=== PATIENT | male | born 1960 | race Caucasian/White ===

== ENCOUNTER 2016-08-26 21:43 | Emergency (ER) | payer BC ==
--- NOTE | 2016-08-26 22:23 | ERNOTE ---
Upper Extremity HPI - General Extremities Pain Location: forearm: right - swelling and tenderness Time Seen by Provider: 08/26/16 22:00 Source: patient - Immun/Allergies/Home Medications Immunizations: IMMUNIZATION HX Immunizations Up to Date No: last tetanus vaccine unknown History of Influenza Vaccine No Hx Pneumococcal Vaccination No Allergies/Adverse Reactions: Allergies Allergy/AdvReac Type Severity Reaction Status Date / Time No Known Allergies Allergy Verified 07/22/16 11:55 Home Medications: HOME MEDICATIONS Lisinopril/Hydrochlorothiazide [Zestoretic 20-25 mg Tablet] 2 each PO DAILY [Last Taken 07/22/16 06:00] HYDROcodone/ACETAMINOPHEN [[place] 5-325] 1 - 2 tab PO Q6H PRN #30 tab 07/19/16 [ Last Taken 07/21/16 00:00] HYDROcodone/ACETAMINOPHEN [[place] 5-325] 1 - 2 tab PO Q4H PRN #60 tab 07/22/16 [ Last Taken Unknown] Potassium Gluconate [Potassium] 99 mg PO DAILY 07/22/16 [Last Taken 07/19/16 08: 00] - History of Present Illness Narrative: Pt had humerus fracture and ORIF on July 21. Has had problems with edema and has had edema glove and sleeve which have helped in general. an area on the right forearm has remained swollen even with the sleeve. When they removed the sleeve there was a large area on the posterior/ lat forearm approx the size of a golf ball Severity: moderate Method of Injury: Reports: other Other Injuries: Reports: extremities - shoulder Prior Treament: Reports: recently seen - has had forearm x-ray done without abnormalities, treated by physician Review of Systems - Review of Systems Constitutional: Absent: recent illness, fever, chills EYE: Present: no symptoms reported ENT: Present: no symptoms reported Respiratory: Absent: shortness of breath, cough Cardiology: Absent: chest pain Gastrointestinal/Abdominal: Present: no symptoms reported Genitourinary: Present: no symptoms reported Skin: Present: See HPI Neurological: Present: no symptoms reported Endocrine: Present: no symptoms reported Hematologic/Lymphatic: Present: other - edema since shoulder surgery Psych: Present: no symptoms reported - Patient's Past Medical History Patient History - Medical: GERD, Other Patient History - Cardiac/Respiratory: COPD, Hypertension Patient History - Cancer: No Hx of Cancer Patient History - Surgical Procedures: Appendectomy, Cholecystectomy, Colonoscopy, EGD, Other - Family History Father Family History - Medical: , No pertinent hx Family History - Cardiac/Respiratory: Coronary Heart Disease, Myocardial Infarction, Pulmonary Embolism, Other Mother Family History - Medical: , No pertinent hx Family History - Cardiac/Respiratory: Hypertension - Social History Living Situations: spouse Smoking Status: Never smoker Have you smoked in the past 12 months: No Do you dip or chew tobacco: No Alcohol Use: none Drug Use: none Physical Exam - Physical Exam General Appearance: Present: wd/wn, alert, no apparent distress Neck: Present: normal inspection, supple Respiratory: Present: no respiratory distress, no accessory muscle use Peripheral Pulses: N=norm/S=strong/W=weak/B=bound/A=absent: Radial (R): Normal Back Exam: Present: normal inspection, normal range of motion Extremity Exam: Present: extremity edema - RUE. specific swelling on the post/ lat right forearm approx 4-5 cm from the elbow. Mild tenderness at this swelling but most tenderness medial on the proximal forearm Neurological Exam: Present: alert, oriented Skin Exam: Present: normal color, warm/dry ED Progress - Results and Orders Patient's Lab Results:: I have reviewed the patient's lab results. Results and Orders: Laboratory Tests 08/26/16 08/26/16 22:22 22:22 WBC 5.6 Hgb 15.0 Hct 40.7 L Plt Count 218 D-Dimer 0.39 - Vital Signs Patient's Vital Signs:: I have reviewed the patient's vital signs. Vital Signs: Vital Signs 08/26/16 21:47 Temperature 36.6 C Pulse Rate 85 Respiratory 14 Rate Blood Pressure 118/74 O2 Sat by Pulse 96 Oximetry - Progress/Reassessment Chief Complaint: Upper Extremity Injury/Problem Progress:: Unchanged - encouraged keeping arm above his heart as much as he can with his shoulder restrictions. Encouraged pumping hand frequently Departure Clinical Impression: Edema of upper extremity - Departure Disposition: Home Follow Up Needed Condition: Good Instructions: Edema, [id number] Additional Instructions: See Dr. Faust tomorrow as scheduled Referrals: Brooklyn Otoole MD [Primary Care Provider] -
[2016-08-26 22:27] LABS: Hematocrit 40.7 % (42.0-52.0); Mean Cell Volume 85.7 fl (78-100); Mean Corpuscular Hemoglobin 31.6 pg (27-31); Mean Corpuscular Hgb Conc 36.9 g/dl (32-36); Mean Platelet Volume 9.6 fl (6.0-9.5); Neutrophil % 53.6 % (42-75.0); Platelet Count 218 K/mm3 (150-450); Red Blood Count 4.75 M/mm3 (4.7-6.0); Red Cell Distribution Width 12.2 % (11.5-14.0); White Blood Count 5.6 K/mm3 (4.0-10.5)
[2016-08-26 23:29] VITALS: BP 111/79
== END 2016-08-26 23:48 | disposition home or self-care (01) ==
LOC: ER 21:43
DX: R60.0 Localized edema (principal); Z90.49 Acquired absence of other specified parts of digestive tract

== ENCOUNTER 2016-11-13 06:53 | Day surgery (SDC) | payer BC ==
[~2016-11-13 06:53] MED LIST: RINGERS SOLUTION,LACTATED 1,000 ML IV PRN; ceFAZolin SODIUM 1 GM VIAL IV PRN
--- OUTSIDE RECORDS SUMMARY | 2016-11-13 06:57 | XMS REPORT | Continuity of Care Document ---
:1960 Author Organization [facility] ([facility]) Address [address] [place] [address] Phone [phone] Care Team Providers Name Role Phone Unavailable Primary Care Provider Unavailable Source Comments This disclosure is being made pursuant to the Care Everywhere program, applicable federal and state laws, and may not contain all informaitonavailable regarding this patient.[facility] ([facility]) Active Allergies and Adverse Reactions Not on File Current Medications Not on file Active Problems Not on file Social History Tobacco Use Types Packs/Day Years Used Date Never Assessed Plan of Care Health Maintenance Due Date Last Done Comments HCV Screening 1960 Hepatitis B Vaccine (1 of 3 - Primary Series) 1960 Tdap Vaccine 1972 Lipid Disorder Screening 1979 MMR Vaccine 1979 Td Vaccine 1979 Colonoscopy 2011 Prostate Cancer Screening 2011 Influenza Vaccine: Seasonal (#1) 03/11/2016 Results from Last 3 Months Not on file
[2016-11-13] MEDS ORDERED: RINGERS SOLUTION,LACTATED 1,000 ML IV ONE ×2 (07:21→09:10)
[2016-11-13] MEDS ORDERED: BUPIVACAINE HCL 50 ML VIAL IJ ONE ×2 (08:10)
--- NOTE | 2016-11-13 09:02 | OR ---
Operative Report - Dictated Report Narrative: Date: 11/13/2016 Surgeon: Abelino Faust M.D. Explosive Operator Supervisor: Jean Garrett PA-C Preoperative diagnosis: Painful retained implants right shoulder with limited range of motion and Postoperative diagnosis: Painful retained implants right shoulder with limited range of motion Operation: 1 - Removal of deep implants right proximal humerus 2 - manipulation of right shoulder under anesthesia 3 - Intraoperative interpretation of x-rays Retained implants: None Anesthesia: Gen. Plus local Tourniquet time: None Estimated blood loss: 25 ml Drains: None Specimen: Implants for return t0 patient Complications: None Indications: Mr. Can is a 56-year-old gentleman who previously underwent open reduction internal fixation of right proximal humerus and subsequently developed pain related to the implants. They've gone on to heal the fracture however had notable symptoms related to the implants and wished to have these removed. He was also noted to have limited range of motion resulting from likely scar tissue as well as some impingement from his implants. They were seen in the clinic and discuss the options for treatment. He wished to proceed with surgical removal of deep implants. The risks and benefits alternatives were discussed. Risks of , blood clots, bleeding, infection, nerve/tendon/ blood vessel injury, persistent pain, wound complications, and need for additional procedures were discussed. Consent was obtained in the clinic. Procedure: After marking the correct extremity in the preoperative holding area, the patient was taken to the operating room. A timeout was performed. IV antibiotics consisting of Ancef were administered. Adequate anesthesia was placed. The extremity was then prepped and draped in standard sterile fashion. Utilizing the prior incision, sharp dissection was carried through the skin and deltoid. Careful dissection was carried down to the implants. The implants were then removed without complication. There did not appear to be any complications related to the fracture nor any signs of infection. Once all the implants were removed, the wound was thoroughly irrigated. Using blunt dissection the subacromial space was freed of its adhesions. There were was some prominence of his greater tuberosity but mild and his rotator cuff appeared to still be intact. A gentle slow progressive range of motion was obtained using a short lever arm and we were able to obtain forward flexion of approximately 160, abduction of approximately 150, external rotation of approximately 80, and full internal rotation and flexion and adduction . The soft tissues were closed in a layered fashion with 0 and 3-0 Vicryl and the skin was closed with 4-0 nylon. Final images were obtained with C-arm. Sterile dressings of Xeroform, 4 x 4, and Tegaderm. Half percent Marcaine without epinephrine was infused into the skin edges and the joint prior to placing dressings. All sponge, needle, sharp, and instrument counts were correct prior to closing the wound. The patient was awoken and transferred to the postanesthesia care in stable condition.
[2016-11-13] MEDS ORDERED: oxyCODONE HCL/ACETAMINOPHEN 1 TAB TABLET PO PRN (09:55)
[2016-11-13] MEDS ORDERED: RINGERS SOLUTION,LACTATED 1,000 ML IV PRN (09:57)
[2016-11-13] MEDS ORDERED: HYDROmorphone HCL 2 MG/ML VIAL IV PRN (09:57)
[2016-11-13 10:46] VITALS: BP 108/65
== END 2016-11-13 06:54 | disposition home or self-care (01) ==
LOC: AMB 06:53
PROVIDERS: ATTEND Orthopaedic Surgery
PROC: 0RNJXZZ Release Right Shoulder Joint, External Approach (ICD-10-PCS; 2016-11-13)
PROC: 0RPJ04Z Removal of Internal Fixation Device from Right Shoulder Joint, Open Approach (ICD-10-PCS; principal; 2016-11-13 08:00)
DX: T84.84XA Pain due to internal orthopedic prosthetic devices, implants and grafts, initial encounter (principal); M25.611 Stiffness of right shoulder, not elsewhere classified; I10 Essential (primary) hypertension; J44.9 Chronic obstructive pulmonary disease, unspecified; K21.9 Gastro-esophageal reflux disease without esophagitis; F32.9 Major depressive disorder, single episode, unspecified; Z87.891 Personal history of nicotine dependence; Z68.36 Body mass index [BMI] 36.0-36.9, adult

== ENCOUNTER 2017-07-01 08:38 | Observation (INO) | payer BC ==
[2017-07-01] MEDS ORDERED: HYDROmorphone HCL 1 MG/ML DISP.SYRIN IV ONE ×2 (08:54→09:46)
[2017-07-01] MEDS ORDERED: KETOROLAC TROMETHAMINE 30 MG/ML VIAL IV ONE (08:55)
[2017-07-01] MEDS ORDERED: LORazepam 2 MG/ML DISP.SYRIN IV ONE (08:55)
[2017-07-01] MEDS ORDERED: KETOROLAC TROMETHAMINE 30 MG/ML VIAL ONE (09:04)
[2017-07-01] MEDS ORDERED: HYDROmorphone HCL 1 MG/ML DISP.SYRIN ONE ×2 (09:04→09:47)
[2017-07-01] MEDS ORDERED: LORazepam 2 MG/ML DISP.SYRIN ONE (09:05)
[2017-07-01] MEDS ORDERED: ORPHENADRINE CITRATE 30 MG/ML VIAL IV ONE (09:34)
[2017-07-01] MEDS ORDERED: ORPHENADRINE CITRATE 30 MG/ML VIAL ONE (09:36)
[2017-07-01] MEDS ORDERED: METHYLPREDNISOLONE SOD SUCC/PF 125 MG/2 ML VIAL IV ONE (09:45)
[2017-07-01] MEDS ORDERED: METHYLPREDNISOLONE SOD SUCC/PF 125 MG/2 ML VIAL ONE (09:47)
--- NOTE | 2017-07-01 11:24 | ERNOTE ---
Back Pain ER HPI Date of Service: 07/01/17 Presenting Symptoms: other - back pain Time Seen by Provider: 07/01/17 08:54 Source: patient Exam Limitations: no limitations Immunizations: IMMUNIZATION HX Immunizations Up to Date No: last tetanus vaccine unknown History of Influenza Vaccine No Hx Pneumococcal Vaccination No Allergies/Adverse Reactions: Allergies No Known Allergies Allergy (Verified 07/01/17 08:46) Home Medications: HOME MEDICATIONS Lisinopril/Hydrochlorothiazide [Zestoretic 20-25 mg Tablet] 2 each PO DAILY [Last Taken 11/13/16 06:10] Omeprazole [Prilosec] 20 mg PO BID 11/12/16 [Last Taken Unknown] Narrative: Patient presents to the ED for severe back pain. he has been having left back pain into left buttock. He rolled over this morning and had severe pain left back radiating left leg to the knee. Left leg feels numb. No loss of bowel or bladder control. He is yelling out in severe pain with any movement. Denies fall. no fever. Recent bronchitis. No right leg Sx. Pain worse with movement. Has not seen anyone else for this. States he has been unable to walk since this morning. Timing: Reports: constant Quality/Severity: Reports: severe Location of pain: Reports: lower back, radiating to lf thigh/leg Activities at Onset: Reports: none Recent Injury?: Reports: no Possible Precipitating Factor: Reports: none Modifying Factors - (Improves): Reports: other - rest Modifying Factors - (Worsens): Reports: movement to right, movement to left, movement flexion Associated Symptoms: Denies: fever/chills, constipation/incontinence, nausea/ vomiting, problems urinating Prior Treament: Denies: recently seen Review of Systems - Review of Systems Constitutional: Absent: fever Respiratory: Absent: shortness of breath Cardiology: Absent: chest pain Gastrointestinal/Abdominal: Absent: abdominal pain Genitourinary: Absent: dysuria All Other Systems: All systems neg except as marked - Patient's Past Medical History Patient History - Medical: GERD, Other Patient History - Cardiac/Respiratory: COPD, Hypertension, Other Patient History - Cancer: No Hx of Cancer Patient History - Surgical Procedures: Appendectomy, Cholecystectomy, Colonoscopy, EGD, Other Patient History - Other: None - Family History Father Family History - Medical: , No pertinent hx Family History - Cardiac/Respiratory: Coronary Heart Disease, Myocardial Infarction, Pulmonary Embolism, Other Family History - Cancer: No pertinent family hx Mother Family History - Medical: , No pertinent hx Family History - Cardiac/Respiratory: Hypertension Family History - Cancer: No pertinent family hx - Social History Living Situations: home Abuse History: No History of abuse Psych History: Hx of Anxiety Alcohol Use: none Drug Use: none - Immunizations Immunizations Up to Date: No - last tetanus vaccine unknown Hx Pneumococcal Vaccination: No History of Influenza Vaccine: No Physical Exam - Physical Exam General Appearance: Present: alert, moderate distress, other - due to pain Head Exam: Present: normal inspection, no evidence of injury Eye Exam: Normal inspection: bilateral, PERRL: bilateral Ears, Nose, Throat: Present: normal ENT inspection Neck: Present: normal inspection, nontender Respiratory: Present: no respiratory distress, normal breath sounds, no accessory muscle use, lungs clear Cardiovascular/Chest: Present: regular rate, rhythm, normal peripheral pulses Gastrointestinal/Abdominal: Present: normal bowel sounds, nontender, nondistended, soft Back Exam: Present: muscle spasm, other - significant tenderness left low back musculature. Yells out in pain with palpation. Absent: vertebral tenderness Extremity Exam: Present: no edema Neurological Exam: Present: alert, other - Patellar tendon reflexes seem equal. LT sensation intact. He does seem to have equal and symmetric plantar and dorsi flexion strength but pain limits exam. Given limitation of pain, no clear focal motor deficit. Skin Exam: Present: normal color, warm/dry ED Progress - Vital Signs Patient's Vital Signs:: I have reviewed the patient's vital signs. Vital Signs: Vital Signs 07/01/17 07/01/17 07/01/17 08:42 09:40 10:20 Temperature 35.7 C L Pulse Rate 65 75 86 Respiratory 12 12 12 Rate Blood Pressure 139/81 150/97 151/72 O2 Sat by Pulse 96 96 98 Oximetry 07/01/17 10:50 Temperature Pulse Rate 87 Respiratory 12 Rate Blood Pressure 150/78 O2 Sat by Pulse 98 Oximetry - X-Ray X-Ray #1 X-Ray: lumbosacral Interpretation: Interp. by me X-ray Comments: I reviewed official radiology report - Progress/Reassessment Chief Complaint: Back Pain Progress Note-Subjective: 07/01/17 11:21 patient had IV Toradol, Dilaudid X 2, Solumedrol, Orphenadrine, Ativan. With this he was unable to walk d/t pain. I stood him up next to the bed and he needed assistance, nearly collapsed with walking d/t pain. Given this he cannot go home. i spoke with Dr Nichole who will candida obs and will try to get MRI. nothing at this time appears to be c/w cauda-equina syndrome of clear motor deficit. Departure Clinical Impression: Low back pain radiating to left leg, Intractable pain - Departure Disposition: [facility] Condition: Stable Referrals: Brooklyn Otoole MD [Primary Care Provider] -
[2017-07-01] MEDS ORDERED: oxyCODONE HCL 5 MG TABLET PO PRN (11:38)
[2017-07-01] MEDS ORDERED: KETOROLAC TROMETHAMINE 30 MG/ML VIAL IV SCH (11:45)
[2017-07-01] MEDS ORDERED: FLU VACC QS2017-18(6MOS UP)/PF 60 MCG/0.5 ML SYRINGE IM ONE (12:37)
--- NOTE | 2017-07-01 13:32 | HP ---
Chief Complaint - Chief Complaint Date of Service: 07/01/17 Time of Service: 13:25 Chief Complaint: Back pain History of Present Illness: Low back pain for a month. Today twisted, severe left low back pain going into left leg. Can't walk. No prior. Many doses of IV narcotics, no help. No one in the family with low back problem. On prednisone and zithromax for bronchitis from clinic from yesterday. - Patient's Past Medical History Patient History - Medical: GERD Patient History - Cardiac/Respiratory: Bronchitis, COPD, Hypertension, Pneumonia Patient History - Cancer: No Hx of Cancer, Non Hodgkins Lymphoma Patient History - Surgical Procedures: Appendectomy, Cholecystectomy, Colonoscopy, EGD, Other Patient History - Other: None - Family History Father Family History - Medical: , No pertinent hx Family History - Cardiac/Respiratory: Coronary Heart Disease, Myocardial Infarction, Pulmonary Embolism, Other Family History - Cancer: No pertinent family hx Mother Family History - Medical: , No pertinent hx Family History - Cardiac/Respiratory: Hypertension Family History - Cancer: No pertinent family hx - Social History Living Situations: home Abuse History: No History of abuse Psych History: Hx of Anxiety Smoking Status: Former smoker Have you smoked in the past 12 months: No Do you dip or chew tobacco: No Alcohol Use: none Drug Use: none - Immunizations Immunizations Up to Date: No - last tetanus vaccine unknown Hx Pneumococcal Vaccination: No History of Influenza Vaccine: No Review Of Systems (GEN) - Review of Systems Generalized/Overall Review: Present: No Symptoms Reported EENTM: Present: No Symptoms Reported Respiratory: Present: Other - bronchitis Cardiac: Present: No Symptoms Reported Abdominal: Present: No Symptoms Reported Genitourinary: Present: No Symptoms Reported Musculoskeletal: Present: Back Pain Neurological: Present: No Symptoms Reported Skin: Present: No Symptoms Reported Endocrine: Present: No Symptoms Reported Misc: All systems neg except as marked Immunizations: IMMUNIZATION HX Immunizations Up to Date No: last tetanus vaccine unknown History of Influenza Vaccine No Hx Pneumococcal Vaccination No Allergies/Adverse Reactions: Allergies Allergy/AdvReac Type Severity Reaction Status Date / Time No Known Allergies Allergy Verified 07/01/17 13:29 Home Medications: HOME MEDICATIONS Lisinopril/Hydrochlorothiazide [Zestoretic 20-25 mg Tablet] 2 each PO DAILY [Last Taken 06/30/17 09:00] Omeprazole [Prilosec] 20 mg PO BID 11/12/16 [Last Taken 06/30/17 17:00] Azithromycin [Zithromax] 250 mg PO DAILY 07/01/17 [Last Taken 06/30/17 15:00] predniSONE [Prednisone] 40 mg PO DAILY 07/01/17 [Last Taken 06/30/17 15:00] Exam - Exam Vital Signs: Vital Signs - Last Taken Selected Entries 07/01/17 12:00 Temperature 36.8 C Temperature Temporal Artery Source Scan Pulse Rate 56 L Respiratory 18 Rate Respiratory Normal Depth Respiratory Normal Effort Non-Labored Respiratory Normal Pattern Blood Pressure 145/89 Blood Pressure Supine Position O2 Sat by Pulse 96 Oximetry Oxygen Delivery Room Air Method Constitutional: Present: Alert, Oriented x3, Cooperative, Well developed, Well nourished, Moderate distress ENT Exam: Present: normal ENT inspection, hearing grossly normal Neck: Present: normal inspection Back Exam: Present: normal inspection, muscle spasm, vertebral tenderness Respiratory: Present: normal breath sounds, no respiratory distress Cardiovascular/Chest: Present: regular rate, rhythm, no murmur Abdomen: Present: Normal bowel sounds, soft, nontender, nondistended, no rebound tenderness, no hepatospenomegaly, no masses Extremity: Present: normal inspection, no pedal edema Skin Exam: Present: normal color, warm/dry, no cyanosis Neurologic: Present: alert, oriented x 3 Appearance: Present: appropriate appearance, appropriate insight, neat, no memory impairment Eye contact: Present: cooperative, good eye contact, normal speech Thoughts: Present: normal thought pattern Assessment/Plan - Narrative Narrative: Pain meds. MRI. Bronchits meds. - Assessment/Plan (1) Intractable pain Problem: Acute (2) Low back pain radiating to left leg Problem: Acute (3) Bronchitis Problem: Acute
[2017-07-01] MEDS: KETOROLAC TROMETHAMINE 30 MG/ML VIAL IV SCH ×2 (14:37→20:26)
[2017-07-01] MEDS ORDERED: MORPHINE SULFATE 10 MG/0.5 ML SYRINGE PO PRN (15:01)
[2017-07-01] MEDS ORDERED: AZITHROMYCIN 250 MG TABLET PO ONE (15:55)
[2017-07-01] MEDS ORDERED: predniSONE 20 MG TABLET PO ONE (15:57)
[2017-07-01] MEDS ORDERED: MORPHINE SULFATE 15 MG TABLET.SA PO SCH (16:00)
[2017-07-01] MEDS: PANTOPRAZOLE SODIUM 20 MG TABLET.DR PO SCH (20:26)
[2017-07-02] MEDS: KETOROLAC TROMETHAMINE 30 MG/ML VIAL IV SCH ×3 (03:05→15:28)
[2017-07-02] MEDS ORDERED: MORPHINE SULFATE 15 MG TABLET.SA PO SCH (06:00)
[2017-07-02] MEDS: PANTOPRAZOLE SODIUM 20 MG TABLET.DR PO SCH (06:29)
--- NOTE | 2017-07-02 08:17 | PN ---
Subjective - Date and Time Seen Date: 07/02/17 Time: 08:13 Subjective Narrative: Back pain a little better. Pain med helps a little bit. Objective - Review of Systems Generalized/Overall Review: Reports: No Symptoms Reported EENTM: Reports: No Symptoms Reported Respiratory: Reports: No Symptoms Reported Cardiac: Reports: No Symptoms Reported Abdominal: Reports: No Symptoms Reported Genitourinary Symptoms: Reports: No Symptoms Reported Musculoskeletal Complaints: Reports: Back Pain, Other - leg pain Neurological: Reports: No Symptoms Reported Skin: Reports: No Symptoms Reported Endocrine: Reports: No Symptoms Reported Misc: All systems neg except as marked - Vitals Vitals: Last Vital Signs Selected Entries 07/02/17 07:00 Temperature 36.4 C L Temperature Temporal Artery Source Scan Pulse Rate 60 Respiratory 18 Rate Blood Pressure 125/89 Blood Pressure Supine Position O2 Sat by Pulse 95 Oximetry Oxygen Delivery Room Air Method - Exam Constitutional: Present: Alert, Oriented x3, Cooperative, Well developed, Well nourished, No distress ENT Exam: Present: normal ENT inspection Neck: Present: normal inspection Respiratory: Present: normal breath sounds, no respiratory distress Cardiovascular/Chest: Present: regular rate, rhythm, no murmur Abdomen: Present: Normal bowel sounds, soft, nontender, nondistended, no rebound tenderness, no hepatospenomegaly, no masses, obese Extremity: Present: normal inspection, no pedal edema Skin Exam: Present: normal color, warm/dry, no cyanosis Neurologic: Present: alert, oriented x 3 Appearance: Present: appropriate appearance, appropriate insight, neat, no memory impairment Eye contact: Present: cooperative, good eye contact, normal speech Thoughts: Present: normal thought pattern Assessment/Plan Plan Narrative: Consult anesthesia for MIKEY - Problems/Diagnosis (1) Intractable pain Problem: Acute (2) Low back pain radiating to left leg Problem: Acute (3) Bronchitis Problem: Acute
[2017-07-02] MEDS ORDERED: AZITHROMYCIN 250 MG TABLET PO SCH (09:00)
[2017-07-02] MEDS ORDERED: LISINOPRIL 40 MG TABLET PO SCH (09:00)
[2017-07-02] MEDS ORDERED: HYDROCHLOROTHIAZIDE 25 MG TABLET PO SCH (09:00)
[2017-07-02] MEDS ORDERED: LISINOPRIL PO SCH (09:00)
[2017-07-02] MEDS ORDERED: [UNRECOGNIZED DRUG - OTHER] PO SCH (09:00)
[2017-07-02] MEDS ORDERED: HYDROCHLOROTHIAZIDE PO SCH (09:00)
[2017-07-02] MEDS ORDERED: predniSONE 20 MG TABLET PO SCH (09:00)
--- NOTE | 2017-07-02 13:37 | OR ---
Anesthesia Pre Procedure Eval Pre Procedure Evaluation: Last Vital Signs Temp 36.3 C L 07/02/17 10:43 Pulse 61 07/02/17 10:43 Resp 20 07/02/17 10:43 BP 119/82 07/02/17 10:43 Pulse Ox 96 07/02/17 10:43 O2 Oxygen Delivery Method Room Air PRE PROCEDURE EVALUATION:: DATE: 07/02/2017 TIME: 1320 INDICATIONS: Radicular low back pain. Bulging disc L3 4. Neural foraminal narrowing L3 4 left. PAST MEDICAL HISTORY: No previous epidural straight injections. EXAM: Heart rate regular. Lungs clear and equal. Patient complains of low back pain radiating into his left thigh and left knee. He has some pain in his right leg as well but not as bad as his left. Procedure risks and benefits were explained to and accepted by the patient. ASSESSMENT OF MEDICAL STATUS: No contraindication to epidural steroid injection. PLANNED PROCEDURE : Fluoroscopy guided epidural steroid injection at L3 4. Home Medications: HOME MEDICATIONS Lisinopril/Hydrochlorothiazide [Zestoretic 20-25 mg Tablet] 2 each PO DAILY [Last Taken 06/30/17 09:00] Omeprazole [Prilosec] 20 mg PO BID 11/12/16 [Last Taken 06/30/17 17:00] Azithromycin [Zithromax] 250 mg PO DAILY 07/01/17 [Last Taken 06/30/17 15:00] predniSONE [Prednisone] 40 mg PO DAILY 07/01/17 [Last Taken 06/30/17 15:00]
[2017-07-02] MEDS ORDERED: LIDOCAINE HCL/PF 5 ML VIAL IJ ONE ×3 (14:09)
[2017-07-02] MEDS ORDERED: DEXAMETHASONE SOD PHOSPHATE 10 MG/ML VIAL IJ ONE (14:09)
[2017-07-02] MEDS ORDERED: IOPAMIDOL 20 ML VIAL IJ ONE (14:09)
--- NOTE | 2017-07-02 14:50 | OR ---
Anesthesia Procedure Note - Anesthesia Procedure Note Narrative: Vital Signs - Last Taken Temp 36.3 C L 07/02/17 10:43 Pulse 61 07/02/17 10:43 Resp 20 07/02/17 10:43 BP 119/82 07/02/17 10:43 Pulse Ox 96 07/02/17 10:43 O2 Oxygen Delivery Method Room Air 07/02/17 14:46 ANESTHESIA PROCEDURE NOTE Date of Procedure: 07/02/2017 Time of procedure: 1430. Performed by: Jordan Cunningham CRNA Electrician Shop: None. Preprocedure diagnosis: Radicular low back pain. Bulging disc L3 4. And L4 5. Post procedure diagnosis: Same. Procedure: Epidural Steroid Injection at L4 5. Indications: Radicular low back pain. Findings: See below. Details of the procedure: The patient was brought back to operating room #3. The patient was then placed in the prone position. Back was prepped with DuraPrep. Patient was then draped in sterile fashion. Lidocaine 1% was infiltrated to the skin and subcutaneous tissues at the level of the L3 4 interspace. Unable to advance into the epidural space at this level. 1% lidocaine was infiltrated to the skin and subcutaneous tissue at the L4 5 interspace. The epidural space was identified using a 20-gauge Tuohy needle with [id number] technique and fluoroscopic guidance. A total of the 3 mL of Isovue 200 contrast dye was injected in first the lateral and AP positions to confirm needle placement. Dexamethasone 10 mg + 5 mL of 1% preservative-free lidocaine was administered to the epidural space after negative aspiration for blood and CSF. The Tuohy needle was removed intact. A Band-Aid was applied to the patient's back. The patient was then placed in a[] position for 5 minutes before returning to the ambulatory surgical unit. Total fluoroscopy time was 38.6 seconds. Total dose 26.69 m/gy. EBL: Minimal. Fluids: N/A. Specimen: N/A. Post procedure condition: The patient tolerated the procedure well. No complications were noted. Thank you for this consultation. Jordan Cunningham CRNA
--- NOTE | 2017-07-02 17:01 | DS ---
(1) Intractable pain Problem: Acute (2) Low back pain radiating to left leg Problem: Acute (3) Bronchitis Problem: Acute Procedures Performed: see notes below - MIKEY L3-L4 Results and Findings: Slight improvement in pain with pain meds. MIKEY almost entirely abolished pain. Plan to discharge home. Discharge Disposition: Home self care Disposition: Home self-care Condition: Good Discharge Activity: Activity as tolerated Discharge Diet: General/regular food Referrals: Brooklyn Otoole MD [Primary Care Provider] - Consultation Done:: Anesthesia Problem Oriented Discharge Instructions to Patient/Family: Back Pain, Adult, Sciatica, [id number] Additional Patient Instructions (free text): Lose [address] Otoole. When you see him, ask him for a referral to physical therapy for a core muscle strengthening program. Complete Home Medications List: Complete Home Medication List: Lisinopril/Hydrochlorothiazide [Zestoretic 20-25 mg Tablet] 2 each PO DAILY Omeprazole [Prilosec] 20 mg PO BID 11/12/16 Azithromycin [Zithromax] 250 mg PO DAILY 07/01/17 predniSONE [Prednisone] 40 mg PO DAILY 07/01/17
[2017-07-02 17:05] VITALS: BP 126/86
== END 2017-07-02 17:20 | disposition home or self-care (01) ==
LOC: ER 08:38 → MS 11:12
PROVIDERS: ADMIT Allergy & Immunology; ATTEND Allergy & Immunology
PROC: 3E0R3BZ Introduction of Anesthetic Agent into Spinal Canal, Percutaneous Approach (ICD-10-PCS; principal; 2017-07-01)
PROC: 3E0R33Z Introduction of Anti-inflammatory into Spinal Canal, Percutaneous Approach (ICD-10-PCS; 2017-07-01)
PROC: B01BYZZ Fluoroscopy of Spinal Cord using Other Contrast (ICD-10-PCS; 2017-07-01)
DX: M51.17 Intervertebral disc disorders with radiculopathy, lumbosacral region (principal); I10 Essential (primary) hypertension; J44.9 Chronic obstructive pulmonary disease, unspecified; Z87.891 Personal history of nicotine dependence; K21.9 Gastro-esophageal reflux disease without esophagitis; Z23 Encounter for immunization
CPT/HCPCS: 62323; 72020; 72110; 72148; 76000; 90471; 90686; 96374; 96375; 96376; 99285; G0378